=== PATIENT | female | born 1985 | race Caucasian/White ===

== ENCOUNTER 2017-03-07 15:15 | Inpatient (IN) | payer BC, OTHER ==
[2017-03-07 15:44] VITALS: BMI 36.0
[2017-03-07] MEDS: Lactated Ringer's 1,000 ML IV SCH ×3 (16:10→19:21)
[2017-03-07 17:18] LABS: RBC URINE 1 /hpf (0-3); URINE BACTERIA MANY (<OCC); URINE BILIRUBIN NEGATIVE (NEGATIVE); URINE BLOOD NEGATIVE (NEGATIVE); URINE COLOR YELLOW (YELLOW); URINE GLUCOSE (UA) NEG (Normal); URINE KETONE NEGATIVE (NEGATIVE); URINE LEUKOCYTE ESTERASE NEG Leu/uL (Negative); URINE PROTEIN NEGATIVE (NEGATIVE); URINE UROBILINOGEN 0.2-1.0 mg/dL (0.2-1.0); WBC URINE 1 /hpf (0-5)
[2017-03-07] MEDS ORDERED: Betamethasone Soluspan 30 mg/5mL Inj Susp IM ONE (17:39)
[2017-03-07] MEDS ORDERED: Lactated Ringer's 1,000 ML IV SCH ×2 (17:45→23:45)
[2017-03-07 18:06] LABS: BASO # 0.1 K/uL (0.0-0.2); BASO % 0.7 % (0.0-2.0); EOS # 0.2 K/uL (0.0-0.7); EOS % 1.3 % (0.0-4.0); HEMATOCRIT 32.4 % (34.0-47.0); LYMPH # 2.5 K/uL (1.0-4.3); LYMPH % 21.7 % (20.0-40.0); MEAN CELL VOLUME 79.7 fl (81.0-99.0); MEAN CORPUSCULAR HEMOGLOBIN 25.2 pg (27.0-31.0); MEAN CORPUSCULAR HGB CONC 31.6 g/dL (33.0-37.0); MEAN PLATELET VOLUME 8.6 fl (7.2-11.7); MONO # 0.5 K/uL (0.0-0.8); MONO % 4.7 % (0.0-10.0); NEUT # 8.4 K/uL (1.8-7.0); NEUT % 71.6 % (50.0-75.0); RED CELL DISTRIBUTION WIDTH 16.4 % (11.5-14.5); WHITE BLOOD COUNT 11.7 K/uL (4.8-10.8)
[2017-03-07] MEDS ORDERED: Oxytocin 30 units/LR 500ML 30 U/500 ML BAG IV ONE (18:46)
[2017-03-07] MEDS ORDERED: ceFAZolin IV 2 gm in Dextrose 2 GM/50 ML BAG IVPB ONE ×2 (18:49→19:00)
[2017-03-07] MEDS ORDERED: Oxycodone/Acetaminophen 5/325 mg Tab PO PRN (20:54)
[2017-03-07] MEDS ORDERED: DiphenhydrAMINE 50 mg/ml Inj IVP PRN (20:54)
[2017-03-07] MEDS ORDERED: Naloxone 0.4 mg/ml Inj (Adult) IVP PRN (20:54)
--- NOTE | 2017-03-08 06:43 | OP ---
PROCEDURE DATE: 03/07/2017 PREOPERATIVE DIAGNOSES: Intrauterine at 34 weeks, anhydramnios, intrauterine growth restriction. POSTOPERATIVE DIAGNOSES: Intrauterine at 34 weeks, anhydramnios, intrauterine growth restriction. OPERATION PERFORMED: Primary low flap transverse section via Pfannenstiel skin incision. SURGEON: Isaiah Ya MD MANAGER LSW: Dr. Alejandro Badillo was instrumental in the care of the patient He helped create exposure, obtained hemostasis, was essential in delivering the and closure of the patient she should not been possible without his assistance ANESTHESIA: Spinal. ANESTHESIA ADMINISTERED BY: Dr. Lewis. ESTIMATED BLOOD LOSS: 800 mL. URINE OUTPUT: Jeong catheter put out approximately 200 mL of clear urine. IV FLUID INTAKE: Patient received approximately 1300 mL of D5 LR intraoperatively. OPERATIVE FINDINGS: A baby boy, vertex presentation. Weighing 1630 grams. Apgars 9 and 9. Normal uterus, tubes, and ovaries were identified. Maternal Medicine consultation was obtained. Patient was noted to be anhydramnios and 34 weeks' gestation. Recommendation for primary section was made. DESCRIPTION OF PROCEDURE: After informed consent was obtained, the patient was then taken to the operating room. She was prepped and draped in the normal sterile fashion. A Pfannenstiel skin incision was then made with a scalpel and carried down to the underlying layer of fascia. The fascia was then nicked in the midline. The fascial incision was then grasped with Victorino clamps, elevated up and the rectus muscles were dissected off using both sharp and blunt dissection. The rectus muscles were then in the midline, the peritoneum identified and entered sharply with the Metzenbaum scissors. The peritoneal incision was then extended superiorly and inferiorly with good visualization of the bladder. The bladder blade was then inserted. The vesicouterine peritoneum was identified with smooth pickups and entered sharply with the Metzenbaum scissors. The bladder flap was then created digitally. A low transverse incision was made with a scalpel. The incision was then extended laterally with the bandage scissors. The 's head was then delivered atraumatically. The nose and mouth were suctioned with DeLee suction trap. The cord was clamped and cut. The baby was handed off to the pediatricians. The placenta was then manually removed. The uterus was exteriorized and cleared of all clots and debris. The uterine incision was repaired with 0 Vicryl in a running locked fashion. Second layer of the same suture was used to obtain excellent hemostasis. The uterus was returned to the abdomen. The gutters were cleared of all clots and debris. The abdomen was then copiously irrigated. The irrigant was removed with a suction device. Hemostasis was then noted. The peritoneum was closed with 2-0 Vicryl in a running fashion. The muscles were re-approximated with 0 Vicryl in an interrupted fashion. The fascia was closed with 0 Vicryl in a running fashion. The skin was closed with 4-0 on a Murphy needle. All sponge, lap, needle, and instrument counts were correct x2, and the patient was taken to the recovery room in awake and stable condition. Isaiah Ya MD [facility]
[2017-03-08 07:24] LABS: BASO # 0.2 K/uL (0.0-0.2); BASO % 1.1 % (0.0-2.0); HEMATOCRIT 28.9 % (34.0-47.0); LYMPH # 1.8 K/uL (1.0-4.3); LYMPH % 9.2 % (20.0-40.0); MEAN CELL VOLUME 77.8 fl (81.0-99.0); MEAN CORPUSCULAR HEMOGLOBIN 25.8 pg (27.0-31.0); MEAN CORPUSCULAR HGB CONC 33.1 g/dL (33.0-37.0); MEAN PLATELET VOLUME 7.9 fl (7.2-11.7); MONO # 0.4 K/uL (0.0-0.8); MONO % 2.3 % (0.0-10.0); NEUT # 16.9 K/uL (1.8-7.0); NEUT % 87.4 % (50.0-75.0); PLATELET COUNT 314 K/uL (130-400); RED CELL DISTRIBUTION WIDTH 16.3 % (11.5-14.5); WHITE BLOOD COUNT 19.4 K/uL (4.8-10.8)
--- NOTE | 2017-03-08 08:09 | OBPPN ---
Datetime: 03/08/2017 08:01 PP Pain Prov: Within normal limits PP Nausea Prov: Denies PP Flatus Prov: Yes PP BM Prov: No PP Abdomen/Uterus Prov: Normal PP Lochia Prov: Normal PP Extremities Prov: Normal PP C/S Incision Prov: Normal PP Progress Prov: Normal PP Comments Phys Exam Prov: Incision w/ clean dry bandage in place PP Impression Prov: Normal progression PP Plan Prov: Continue present management PP Progress Note Prov: POD 1s/p c/s for anhydramnios at 34+ wks, doing well, plans to breast feed Advance diet to regular Encourage OOB today Vital Signs Provider PP: Reviewed
[2017-03-08] MEDS ORDERED: Oxycodone/Acetaminophen 5/325 mg Tab PO PRN (08:43)
[2017-03-08] MEDS: Oxycodone/Acetaminophen 5/325 mg Tab PO PRN ×2 (08:50→17:22)
[2017-03-08 10:03] LABS: NEUTROPHIL 88 % (42-75); TOTAL CELLS COUNTED 100
[2017-03-08 10:04] LABS: LARGE PLATELETS PRESENT
[2017-03-10] MEDS ORDERED: Levothyroxine 50 MCG TAB PO SCH (06:30)
[2017-03-10] MEDS ORDERED: Oxycodone/Acetaminophen 5/325 mg Tab PO PRN (08:48)
[2017-03-10] MEDS ORDERED: Prenatal Multivit/Folic Acid/Iron Tab PO SCH (09:00)
[2017-03-10] MEDS: Prenatal Multivit/Folic Acid/Iron Tab PO SCH (10:44)
--- NOTE | 2017-03-10 16:12 | OBPPN ---
Datetime: 03/10/2017 16:11 PP Pain Prov: Within normal limits PP Nausea Prov: Denies PP Flatus Prov: Yes PP BM Prov: Yes PP Breasts Prov: Normal PP Heart Prov: Normal PP Lungs Prov: Normal PP Abdomen/Uterus Prov: Normal PP Lochia Prov: Normal PP Vulva/Perineum Prov: Normal PP CVA Tenderness Prov: Normal PP Extremities Prov: Normal PP C/S Incision Prov: Normal PP Progress Prov: Normal PP Impression Prov: Normal progression Vital Signs Provider PP: Reviewed; Within Normal Limits Datetime: 03/09/2017 10:00 PP Plan Prov: Continue present management PP Progress Note Prov: POD 2 Pt worried about baby in Level 2 at 34w... A: POD 2 cont postop care
--- NOTE | 2017-03-10 16:18 | OBPPN ---
Datetime: 03/10/2017 16:11 PP Progress Note Prov: POD 3 wants to stay with baby in level 2 PLAN: cont postop care anticiapte discharge in AM
[2017-03-11] MEDS ORDERED: Levothyroxine 50 MCG TAB PO SCH (06:30)
--- NOTE | 2017-03-11 07:15 | OBPPN ---
Datetime: 03/11/2017 07:12 PP Pain Prov: Within normal limits PP Nausea Prov: Denies PP Flatus Prov: Yes PP BM Prov: Yes PP Breasts Prov: Normal PP Heart Prov: Normal PP Lungs Prov: Normal PP Abdomen/Uterus Prov: Normal PP Lochia Prov: Normal PP Vulva/Perineum Prov: Normal PP CVA Tenderness Prov: Normal PP Extremities Prov: Normal PP C/S Incision Prov: Normal PP Progress Prov: Normal PP Impression Prov: Normal progression PP Plan Prov: Continue present management PP Progress Note Prov: Notified that she wanted to leave early this morning. Her baby is being discharged home +BM A: S/P day 4 PLAN: discharge home; follow up in 1-2w Vital Signs Provider PP: Reviewed; Within Normal Limits
--- NOTE | 2017-03-11 07:17 | OBDCSUM ---
Datetime: 03/11/2017 07:14 Discharged to, Provider: Home Follow up at, Provider: [facility] Disch Instr Activity: Normal activity Disch Instr Diet: Regular Discharge Instructions, Provider: Routine instructions given Follow up in weeks, Provider: 1-2w Disch Referrals: None Contraception discussed, Prov: Yes Disch Activity Restrictions: No lifting; No sexual activity; Nothing in vagina - [place], tampon s, douche Discharge Comment, Provider: Baby transferreed to [facility]...POD4 Discharge Diagnosis Prov Other: C/S 34w...
[2017-03-11] MEDS: Prenatal Multivit/Folic Acid/Iron Tab PO SCH (09:27)
[2017-03-11 09:40] VITALS: BP 117/62; PULSE 98; RESP 20
[2017-03-11 15:32] VITALS: TEMP 98.3; O2SAT 99
== END 2017-03-11 11:11 | disposition home or self-care (01) | DRG 765 ==
LOC: H.EROB2 15:15 → H.EROB 15:33 → H.L&D 17:37 → H.EROB2 17:40 → H.OB/GYN 03-08 00:57
PROVIDERS: ADMIT Obstetrics & Gynecology Gynecology; ATTEND Obstetrics & Gynecology Gynecology
PROC: 10D00Z1 Extraction of Products of Conception, Low, Open Approach (ICD-10-PCS; principal; 2017-03-07)
PROC: 4A1HXCZ Monitoring of Products of Conception, Cardiac Rate, External Approach (ICD-10-PCS; 2017-03-07)
DX: O36.5930 Maternal care for other known or suspected poor fetal growth, third trimester, not applicable or unspecified (principal); O60.14X0 Preterm labor third trimester with preterm delivery third trimester, not applicable or unspecified; O41.03X0 Oligohydramnios, third trimester, not applicable or unspecified; E03.9 Hypothyroidism, unspecified; O99.284 Endocrine, nutritional and metabolic diseases complicating childbirth; Z37.0 Single live birth; Z3A.34 34 weeks gestation of pregnancy